=== PATIENT | male | born 1935 ===

== ENCOUNTER 2020-10-08 20:31 | Emergency (ER) | payer MEDICARE, OTHER ==
[2020-10-08] MEDS ORDERED: GLUCAGON,HUMAN RECOMB 1 MG INJ SUBCUT ONE (21:44)
--- NOTE | 2020-10-08 21:44 | ER Document Report ---
ED Medical Screen (RME) - General Chief Complaint: Swallowed Foreign Body Stated Complaint: PIECE OF STEAK STUCK IN THROAT Time Seen by Provider: 10/08/20 21:34 Primary Care Provider: SUSSY KOLB MD [Primary Care Provider] - Follow up as needed - [facility] Notes: 10/08/20 21:44 [id number] is [id number] diabetic presents to the emergency room today for evaluation of what feels like a foreign body stuck in his throat. Patient states last night around 9:30 at night he ate a small piece of steak, he states he got stuck in his throat, he tried to cough and spit up but was unable to. Since yesterday he states that he if he tries to drink anything or eat anything, he has to spit it up because there is something blocking it going down into his stomach. Patient denies having an issue with difficulty in swallowing food in the past, states if he ever felt like if something was stuck he was able to cough it up for work it through. Patient denies ever having an endoscopy. Denies any chest pain, shortness of breath, fevers chills, nausea, vomiting, diarrhea. Denies any recent Covid exposure. I have greeted and performed a rapid initial assessment of this patient. A comprehensive ED assessment and evaluation of the patient, analysis of test results and completion of the medical decision making process will be conducted by additional ED providers. PHYSICAL EXAMINATION: GENERAL: Well-appearing, well-nourished and in no acute distress. HEAD: Atraumatic, normocephalic. NECK: Normal range of motion. No thyroid masses CV: s1, s2 regular LUNGS: No respiratory distress neuro: speech clear Physical Exam - Vital signs Vitals: Temp Pulse Resp BP Pulse Ox 99.5 F 100 16 176/83 H 97 10/08/20 20:48 10/08/20 20:48 10/08/20 20:48 10/08/20 20:48 10/08/20 20:48 Course - Vital Signs Vital signs: Temp Pulse Resp BP Pulse Ox 99.5 F 100 16 176/83 H 97 10/08/20 20:48 10/08/20 20:48 10/08/20 20:48 10/08/20 20:48 10/08/20 20:48 Doctor's Discharge - Discharge Referrals: SUSSY KOLB MD [Primary Care Provider] - Follow up as needed
--- NOTE | 2020-10-08 22:29 | RADIOLOGY REPORT (SQ) ---
EXAM DESCRIPTION: CHEST 2 VIEWS CLINICAL HISTORY: 84 years Male, feels like steak is stuck in throat COMPARISON: None. FINDINGS: Lungs: Lungs are clear. No focal consolidation. No pneumothorax or pleural effusion. Mediastinum: Cardiac and mediastinal silhouette are within normal limits. There is postoperative change of prosthetic valve placement. No radiopaque foreign body is identified in the mediastinum. The esophagus may be distended. It appears to be distended with air to the level of the retrocardiac region. Bones: There is endplate spondylosis in the thoracic spine. Upper abdomen is unremarkable. IMPRESSION: Apparent distention of the esophagus to the level of the retrocardiac region. This would support the diagnosis of food impaction in the esophagus. No radiopaque foreign body is visualized. No pneumonia or edema.
--- NOTE | 2020-10-08 22:31 | RADIOLOGY REPORT (SQ) ---
Soft tissue neck radiographs: 10/08/2020 9:29 PM [facility] HELPER COMPARISON: None available HISTORY: 84-year old patient with throat pain. TECHNIQUE: AP and lateral radiographs of the neck were obtained. FINDINGS: The visualized vertebral bodies appear well aligned. No significant prevertebral soft tissue swelling is seen. No gross abnormality is noted. No abnormal radiopaque densities are seen. The visualized apices are unremarkable. There is an overall increased cervical lordosis noted. There is minimal anterolisthesis of C5 over C6 by 3 to 4 mm. Midline sternotomy changes are seen. Atherosclerotic calcifications are seen at the aortic arch. IMPRESSION: No significant prevertebral soft tissue swelling is seen. No gross radiopaque foreign body is seen.
--- NOTE | 2020-10-09 01:27 | ER Document Report ---
ED Foreign Body - General Chief Complaint: Swallowed Foreign Body Stated Complaint: PIECE OF STEAK STUCK IN THROAT Time Seen by Provider: 10/08/20 21:34 Primary Care Provider: SUSSY KOLB MD [Primary Care Provider] - Follow up as needed Mode of Arrival: Ambulatory Information source: Patient Notes: ED Medical Screen ([facility]) - General Chief Complaint: Swallowed Foreign Body Stated Complaint: PIECE OF STEAK STUCK IN THROAT Time Seen by Provider: 10/08/20 21:34 Primary Care Provider: SUSYS KOLB MD [Primary Care Provider] - Follow up as needed - [facility] Notes: 10/08/20 21:44 [id number] is [id number] diabetic presents to the emergency room today for evaluation of what feels like a foreign body stuck in his throat. Patient states last night around 9:30 at night he ate a small piece of steak, he states he got stuck in his throat, he tried to cough and spit up but was unable to. Since yesterday he states that he if he tries to drink anything or eat anything, he has to spit it up because there is something blocking it going down into his stomach. Patient denies having an issue with difficulty in swallowing food in the past, states if he ever felt like if something was stuck he was able to cough it up for work it through. Patient denies ever having an endoscopy. Denies any chest pain, shortness of breath, fevers chills, nausea, vomiting, diarrhea. Denies any recent Covid exposure. MY NOTES 84-year-old male arrives with chief complaint of 24 hours of epigastric pain after he ate a steak 24 hours prior. He was complaining of having problems of vomiting after drinking or anything today. X-rays here today were positive for food bolus in the cardiac sphincter area. A shot of glucagon was given in his left shoulder and he attempted to drink some water and it was able to pass and he feels much improved. He advises he has to get out to his who is in the parking lot. A discharge paper was written for him after q uick discussion with his problem appears to have resolved. He is very happy and advised him to return to ER if symptoms persist or worsen and for him to follow- up with Dr. Brown mask design engineer this week if possible. - Related Data Allergies/Adverse Reactions: No Known Allergies Allergy (Unverified 10/08/20 22:02) Past Medical History - General Information source: Patient - Social History Smoking Status: Never Smoker Cigarette use (# per day): No Chew tobacco use (# tins/day): No Smoking Education Provided: No Frequency of alcohol use: None Lives with: Family Family History: Reviewed & Not Pertinent Patient has suicidal ideation: No Patient has homicidal ideation: No Review of Systems - Review of Systems Constitutional: No symptoms reported EENT: No symptoms reported Cardiovascular: No symptoms reported Respiratory: No symptoms reported Gastrointestinal: See HPI, Abdomen distended, Abdominal pain Genitourinary: No symptoms reported Male Genitourinary: No symptoms reported Musculoskeletal: No symptoms reported Skin: No symptoms reported Hematologic/Lymphatic: No symptoms reported Neurological/Psychological: No symptoms reported Physical Exam - Vital signs Vitals: Temp Pulse Resp BP Pulse Ox 99.5 F 100 16 176/83 H 97 10/08/20 20:48 10/08/20 20:48 10/08/20 20:48 10/08/20 20:48 10/08/20 20:48 Interpretation: Hypertensive, Febrile - General General appearance: Appears well, Alert - HEENT Head: Normocephalic, Atraumatic Eyes: Normal Pupils: PERRL - Respiratory Respiratory status: No respiratory distress Chest status: Nontender Breath sounds: Normal Chest palpation: Normal - Cardiovascular Rhythm: Regular Heart sounds: Normal auscultation Murmur: No - Abdominal Inspection: Normal Distension: No distension Bowel sounds: Normal Tenderness: Nontender - Upon my exam around 0 130 patient was doing quite well ready to leave this ER. He was in triage area. Organomegaly: No organomegaly - Rectal Prostate: Other - Deferred - Genitourinary Scrotum: Other - Deferred - Back Back: Normal, Nontender - Extremities General upper extremity: Normal inspection, Nontender, Normal color, Normal ROM, Normal temperature General lower extremity: Normal inspection, Nontender, Normal color, Normal ROM, Normal temperature, Normal weight bearing. No: Oksana's sign - Neurological Neuro grossly intact: Yes Cognition: Normal Orientation: AAOx4 Rafi Coma Scale Eye Opening: Spontaneous Liberty Coma Scale Verbal: Oriented Liberty Coma Scale Motor: Obeys Commands Liberty Coma Scale Total: 15 Speech: Normal Motor strength normal: LUE, RUE, LLE, RLE Sensory: Normal - Psychological Associated symptoms: Normal affect, Normal mood - Skin Skin Temperature: Warm Skin Moisture: Dry Skin Color: Normal Course - Vital Signs Vital signs: Temp Pulse Resp BP Pulse Ox 99.5 F 100 16 176/83 H 97 10/08/20 20:48 10/08/20 20:48 10/08/20 20:48 10/08/20 20:48 10/08/20 20:48 - Laboratory Laboratory results interpreted by me: 10/08/20 21:46 POC Glucose 122 H - Diagnostic Test Radiology reviewed: Reports reviewed Critical Care Note - Critical Care Note Comments: Much improved around triage waiting room patient reports she has to get to his who was out at the parking lot and is feeling much improved. Discharge - Discharge Clinical Impression: Much improved after Decadron shot Esophageal foreign body Qualifiers: Encounter type: initial encounter Qualified Code(s): T18.108A - Unspecified foreign body in esophagus causing other injury, initial encounter Condition: Stable Disposition: HOME, SELF-CARE Additional Instructions: Follow-up with Dr. Hall mask design engineer tomorrow if symptoms persist take medicines as directed encourage fluids Prescriptions: Misoprostol [Cytotec 0.2 mg Tablet] 0.2 mg PO BID #10 tablet Referrals: SUSSY KOLB MD [Primary Care Provider] - Follow up as needed
[2020-10-09 01:50] VITALS: BP 168/72
--- OUTSIDE RECORDS SUMMARY | 2020-10-10 17:47 | XMS REPORT ---
:1935 Author Organization [facility] Address [address] [address] Care Team Providers Name Role Phone Unavailable Unavailable Unavailable Allergies, Adverse Reactions, Alerts This patient has no known allergies or adverse reactions. Medications Ordered Filled Start Stop Current Ordering Indication Dosage Frequency Signature Comments Components Medication Medication Date Date Medication? Clinician (SIG) Name Name lisinopril No 1 Q1D lisinopril 40 mg 40 mg tablet Take tablet 1 tablet Take 1 every day tablet by oral every day route for by oral 90 days. route for 90 days. Edarbi 40 No 1 Q1D Edarbi 40 mg tablet mg tablet Take 1 Take 1 tablet tablet every day every day by oral by oral route for route for 90 days. 90 days. pyridoxine No 1 Q1D pyridoxine (vitamin (vitamin B6) 100 mg B6) 100 mg tablet Take tablet 1 tablet Take 1 every day tablet by oral every day route for by oral 90 days. route for 90 days. atorvastati No 1 Q1D atorvastat n 10 mg in 10 mg tablet Take tablet 1 tablet Take 1 every day tablet by oral every day route for by oral 90 days. route for 90 days. allopurinol No allopurino 100 mg l 100 mg tablet TAKE tablet 1 TABLET BY TAKE 1 ORAL ROUTE TABLET BY DAILY FOR ORAL ROUTE GOUT DAILY FOR GOUT amlodipine No amlodipine 5 mg tablet 5 mg TAKE 1 tablet TABLET BY TAKE 1 ORAL ROUTE TABLET BY DAILY ORAL ROUTE DAILY aspirin 81 No 1 Q1D aspirin 81 mg mg tablet,vincent tablet,del yed release ayed Take 1 release tablet Take 1 every day tablet by oral every day route. by oral route. atorvastati No atorvastat n 20 mg in 20 mg tablet Take tablet 1 tablet by Take 1 oral route tablet by daily oral route daily glimepiride No glimepirid 1 mg tablet e 1 mg TAKE 1 tablet TABLET BY TAKE 1 ORAL ROUTE TABLET BY DAILY ORAL ROUTE DAILY indomethaci No indomethac n 50 mg in 50 mg capsule capsule TAKE 1 TAKE 1 TABLET BY TABLET BY ORAL ROUTE ORAL ROUTE PRN Q8HRS PRN Q8HRS lisinopril No lisinopril 20 mg 20 mg tablet TAKE tablet 1 TABLET BY TAKE 1 ORAL ROUTE TABLET BY DAILY ORAL ROUTE DAILY metformin No metformin ER 500 mg ER 500 mg tablet,exte tablet,ext nded ended release 24 release 24 hr TAKE 1 hr TAKE 1 TABLET BY TABLET BY ORAL ROUTE ORAL ROUTE DAILY DAILY metoprolol No metoprolol succinate succinate ER 50 mg ER 50 mg tablet,exte tablet,ext nded ended release 24 release 24 hr TAKE 1 hr TAKE 1 1/2 TABLET 1/2 TABLET BY ORAL BY ORAL ROUTE DAILY ROUTE DAILY tadalafil No tadalafil 20 mg 20 mg tablet take tablet 1 tablet by take 1 oral route tablet by daily oral route daily lisinopril No 2 Q1D lisinopril 30 mg 30 mg tablet Take tablet 2 tablets Take 2 every day tablets by oral every day route for by oral 90 days. route for 90 days. amlodipine No 1 Q1D amlodipine 10 mg 10 mg tablet Take tablet 1 tablet Take 1 every day tablet by oral every day route for by oral 90 days. route for 90 days. 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 00:00: arm Arm 00 Degenerativ Degenerativ Problem Active e joint e Joint 1-15 disease Disease 00:00: involving Involving 00 multiple Multiple joints Joints Hyperlipide Hyperlipide Problem Active neymar neymar 06-27 00:00: 00 Chronic Chronic Problem Active gouty Gouty 06-27 arthritis Arthritis 00:00: 00 Coronary Coronary Problem Active arterioscle Arterioscle 06-27 rosis rosis 00:00: 00 Bifascicula 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 06-27 00:00: 00 Primary Primary Problem Active erectile Erectile 06-27 dysfunction Dysfunction 00:00: 00 Unsteady Unsteady Problem Active when When 06-27 standing Standing 00:00: 00 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 00:00: 00 History of History of Problem Active aortic Aortic 03-02 valve Valve 00:00: replacement Replacement 00 Type 2 Type 2 Problem Active diabetes Diabetes mellitus Mellitus Essential Essential Problem Active hypertensio Hypertensio n n Procedures Procedure Date / Time Performed Performing Clinician Charly e bone density 2019-12-13 00:00:00 XR, knee 2019-10-11 00:00:00 sudomotor testing of autonomic 2019-07-26 00:00:00 nervous system function (PROC) ELECTROCARDIOGRAM COMPLETE 2019-07-26 00:00:00 PHYSICAL PERFORMANCE TEST 2019-06-27 00:00:00 Heart Valve Replacement 2011-03-02 00:00:00 Cataract Surgery Tonsillectomy Appendectomy Results Test Description Test Time Test Comments Text Results Atomic Results Result Comments CBC W Auto Differential panel - Blood 2020-05-16 14:43:00 Test Item Value Reference Range Comments WBC (test code = WBC) 7.7 K/uL 4.1-10.9 lym% (test code = lym%) 26.3 % 10.0-58.5 lym# (test code = lym#) 2.0 % 0.6-4.1 mxd# (test code = mxd#) 0.8 % 0.0-1.8 mxd% (test code = mxd%) 10.5 % 0.1-24.0 gran (test code = gran) 4.9 % 2.0-7.8 gran% (test code = gran%) 63.2 % 37.0-92.0 RBC (test code = RBC) 4.57 M/uL 4.20-6.30 HGB (test code = HGB) 13.4 g/dL 14.1-18.1 HCT (test code = HCT) 41.0 % 34.5-53.7 MCV (test code = MCV) 89.7 fL 80.0-97.0 MCH (test code = MCH) 29.3 pg 26.0-32.0 MCHC (test code = MCHC) 32.7 g/dL 31.0-36.0 RDW (test code = RDW) 14.6 % 11.5-14.5 plt (test code = plt) 175 K/uL 140-440 MPV (test code = MPV) 9.1 fL 0.0-99.8 lipid panel, [id number] 14:38:13 Test Item Value Reference Range Comments TC (<200 mg/dL) (test code = TC (<200 mg/dL)) 107 mg/dL <2 00 mg/dL HDL (40-60 mg/dL) (test code = HDL (40-60 mg/dL)) 35 mg/dL 40-60 mg/dL trig (<150 mg/dL) (test code = trig (<150 mg/dL)) 89 mg/dL <150 mg/dL LDL (<100 mg/dL) (test code = LDL (<100 mg/dL)) 54 mg/dL <100 non-HDL (<130 mg/dL) (test code = non-HDL (<130 72 mg/dL <130 mg/dL mg/dL)) TC/HDL ratio (4.5 or less) (test code = TC/HDL 1.5 mg/dL 4 .5 or less ratio (4.5 or less)) 10yr CHD risk (test code = 10yr CHD risk) % test code: 801198 (test code = test code: 978425) Microalbumin/Creatinine [Mass Ratio] in [id number] 15:50:00 Test Item Value Reference Range Comments Microalbumin (test code = Microalbumin) 80 Creatinine (test code = Creatinine) 300 Ratio (test code = Ratio) 26 CBC W Auto Differential panel - [id number] 15:49:00 Test Item Value Reference Range Comments WBC (test code = WBC) 8.0 K/uL 4.1-10.9 lym% (test code = lym%) 26.6 % 10.0-58.5 lym# (test code = lym#) 2.1 % 0.6-4.1 mxd# (test code = mxd#) 1.3 % 0.0-1.8 mxd% (test code = mxd%) 15.9 % 0.1-24.0 gran (test code = gran) 4.6 % 2.0-7.8 gran% (test code = gran%) 57.5 % 37.0-92.0 RBC (test code = RBC) 4.55 M/uL 4.20-6.30 HGB (test code = HGB) 13.4 g/dL 14.1-18.1 HCT (test code = HCT) 41.6 % 34.5-53.7 MCV (test code = MCV) 91.5 fL 80.0-97.0 MCH (test code = MCH) 29.5 pg 26.0-32.0 MCHC (test code = MCHC) 32.2 g/dL 31.0-36.0 RDW (test code = RDW) 14.7 % 11.5-14.5 plt (test code = plt) 185 K/uL 140-440 MPV (test code = MPV) 8.2 fL 0.0-99.8 fecal occult blood, [id number] 16:22:00 Test Item Value Reference Range Comments Occult Blood (test code = Occult Blood) negative lipid panel, [id number] 12:40:00 Test Item Value Reference Range Comments TC (<200 mg/dL) (test code = TC (<200 mg/dL)) 111 mg/dL <2 00 mg/dL HDL (40-60 mg/dL) (test code = HDL (40-60 mg/dL)) 38 mg/dL 40-60 mg/dL trig (<150 mg/dL) (test code = trig (<150 mg/dL)) 99 mg/dL <150 mg/dL LDL (<100 mg/dL) (test code = LDL (<100 mg/dL)) 53 mg/dL <100 non-HDL (<130 mg/dL) (test code = non-HDL (<130 73 mg/dL <130 mg/dL mg/dL)) TC/HDL ratio (4.5 or less) (test code = TC/HDL 2.9 mg/dL 4 .5 or less ratio (4.5 or less)) 10yr CHD risk (test code = 10yr CHD risk) % test code: 349332 (test code = test code: 309449) Hemoglobin A1c/Hemoglobin.total in [id number] 12:38:00 Test Item Value Reference Range Comments Hemoglobin A1c/Hemoglobin.total in Blood (test code = 6.5 % 4.2% -6.5 4548-4) Microalbumin/Creatinine [Mass Ratio] in [id number] 13:03:00 Test Item Value Reference Range Comments Microalbumin (test code = Microalbumin) 80 Creatinine (test code = Creatinine) 300 Ratio (test code = Ratio) 26 EKG [id number] 13:37:00 Test Item Value Reference Range Comments Rate & Rhythm (test code = Rate & 64 bpm/Sinus rhythm Rhythm) QRS (test code = QRS) 150 ms QRS Duration (test code = QRS Duration) [address] Interval (test code = CT Interval) 196 ms QT Interval (test code = QT Interval) 444 ms Hemoglobin A1c/Hemoglobin.total in [id number] 16:11:00 Test Item Value Reference Range Comments Hemoglobin A1c/Hemoglobin.total in Blood (test code = 5.9 % 4.2% -6.5 4548-4) CBC W Auto Differential panel - [id number] 15:57:00 Test Item Value Reference Range Comments WBC (test code = WBC) 9.4 K/uL 4.1-10.9 lym% (test code = lym%) 32.3 % 10.0-58.5 lym# (test code = lym#) 3.0 % 0.6-4.1 mxd# (test code = mxd#) 1.3 % 0.0-1.8 mxd% (test code = mxd%) 14.3 % 0.1-24.0 gran (test code = gran) 5.0 % 2.0-7.8 gran% (test code = gran%) 53.4 % 37.0-92.0 RBC (test code = RBC) 4.22 M/uL 4.20-6.30 HGB (test code = HGB) 12.7 g/dL 14.1-18.1 HCT (test code = HCT) 39.5 % 34.5-53.7 MCV (test code = MCV) 93.7 fL 80.0-97.0 MCH (test code = MCH) 30.1 pg 26.0-32.0 MCHC (test code = MCHC) 32.2 g/dL 31.0-36.0 RDW (test code = RDW) 15.1 % 11.5-14.5 plt (test code = plt) 277 K/uL 140-440 MPV (test code = MPV) 7.1 fL 0.0-99.8 Assessments Condition Name Status Diagnosis Date Treating Clinici an Essential hypertension 2020-08-15 13:58:40 Hyperlipidemia 2020-08-15 13:58:42 Coronary arteriosclerosis 2020-08-15 13:58:48 Type 2 diabetes mellitus 2020-08-15 14:03:51 Chronic gouty arthritis 2020-08-15 14:04:40 Type 2 diabetes mellitus 2020-05-16 13:51:05 Degenerative joint disease involving 2020-05-16 13:51:07 multiple joints Hyperlipidemia 2020-05-16 14:38:50 Essential hypertension 2020-03-15 11:08:44 Hyperlipidemia 2020-03-15 11:08:45 Coronary arteriosclerosis 2020-03-15 11:08:47 Type 2 diabetes mellitus 2020-01-16 14:34:41 Essential hypertension 2020-01-16 14:35:07 Primary erectile dysfunction 2020-01-16 16:20:50 Ulnar neuropathy of right arm 2020-01-16 16:22:5 2 Adult health examination 2019-12-13 13:59:47 Immunization 2019-12-13 14:00:29 Screening for malignant neoplasm of 2019-12-13 1 4:01:20 colon Screening for osteoporosis 2019-12-13 14:04:15 Advance directive discussed with 2019-12-13 14:0 4:59 patient Essential hypertension 2019-12-13 14:02:50 Type 2 diabetes mellitus 2019-12-13 14:02:59 Type 2 diabetes mellitus Active 2019-10-11 12:02:32 Essential hypertension 2019-10-11 12:02:33 Osteoarthritis of knee Active 2019-10-11 13:40:40 Essential hypertension Active 2019-09-06 15:21:54 Hyperlipidemia Active 2019-09-06 15:21:56 Type 2 diabetes mellitus Active 2019-09-06 17:04:53 Chronic gouty arthritis Active 2019-09-06 17:05:06 Influenza vaccination Active 2019-09-06 17:09:49 Coronary arteriosclerosis Active 2019-07-26 15:30:15 Type 2 diabetes mellitus Active 2019-07-26 15:31:11 Essential hypertension Active 2019-07-26 15:31:13 History of aortic valve replacement Active 2019-07-26 1 6:57:35 Unsteady when standing Active 2019-07-26 15:30:23 Type 2 diabetes mellitus Active 2019-06-27 16:30:18 Essential hypertension Active 2019-06-27 16:30:29 Unsteady when standing Active 2019-06-27 17:00:54 Encounters Start End Encounter Admission Attending Care Care Encounter Date/Time Date/Time Type Type Clinicians Facility Department ID 2020-08-15 [facility] JENNYFER Joseph: Shalini Ideal [address] [facility] [place] [address] , Ph. 2020-05-16 2020-05-16 [facility] 00:00:00 00:00:00 [facility] MD: [address] [place] [address] , Ph. 2020-03-15 2020-03-15 [facility] 00:00:00 00:00:00 [facility] Shalini [address] [facility] MD: [address] [place] [address] , Ph. 2020-01-16 2020-01-16 [facility] 00:00:00 00:00:00 [facility] [address] MD: [address] [place] [address] , Ph. 2019-12-13 2019-12-13 [facility] 00:00:00 00:00:00 [facility] Shalini [address] [facility] MD: [address] [place] [address] , Ph. 2019-10-11 2019-10-11 [facility] 28_2018 00:00:00 00:00:00 [facility] Shalini [address] [facility] MD: [address] [place] [address] , Ph. 2019-09-06 2019-09-06 [facility] 28_2018 00:00:00 00:00:00 [facility] Shalnii [address]9 [facility] MD: [address] [place] [address] , Ph. 2019-07-26 2019-07-26 [facility] 28_2018 00:00:00 00:00:00 [facility] [address] [facility] MD: [address] [place] [address] , Ph. 2019-06-27 2019-06-27 [facility] 28_2018 00:00:00 00:00:00 Aristides Loya 0730 [facility] MD: [address] [place] [address] , Ph. Immunizations Ordered Immunization Filled Immunization Date Status Commen ts Refusal Reason Name Name Influenza, 2019-09-06 Completed injectable, MDCK, 17:26:00 preservative free, quadrivalent influenza, 2018-08-01 Completed injectable, 00:00:00 quadrivalent Plan of Treatment Planned Activity Planned Date Details Comments Future Appointment 2020-10-15 00:00:00 [facility] [address] [address] Social History Smoking Status Start Date Stop Date Former Smoker Vital Signs Vital Name Observation Time Observation Value Comments BP Diastolic 2020-08-15 00:00:00 65 mm[Hg] Height 2020-08-15 00:00:00 70 [in_i] BMI (Body Mass Index) 2020-08-15 00:00:00 29.4 kg/m2 BP Systolic 2020-08-15 00:00:00 155 mm[Hg] Body Weight 2020-08-15 00:00:00 205 [lb_av] BMI (Body Mass Index) 2020-05-16 00:00:00 29.3 kg/m2 BP Systolic 2020-05-16 00:00:00 131 mm[Hg] Body Weight 2020-05-16 00:00:00 204 [lb_av] BP Diastolic 2020-05-16 00:00:00 63 mm[Hg] Height 2020-05-16 00:00:00 70 [in_i] BP Diastolic 2020-03-15 00:00:00 82 mm[Hg] Height 2020-03-15 00:00:00 70 [in_i] BMI (Body Mass Index) 2020-03-15 00:00:00 28.7 kg/m2 BP Systolic 2020-03-15 00:00:00 144 mm[Hg] Body Weight 2020-03-15 00:00:00 200 [lb_av] BP Diastolic 2020-01-16 00:00:00 61 mm[Hg] Height 2020-01-16 00:00:00 70 [in_i] BMI (Body Mass Index) 2020-01-16 00:00:00 28.8 kg/m2 BP Systolic 2020-01-16 00:00:00 134 mm[Hg] Body Weight 2020-01-16 00:00:00 201 [lb_av] BP Diastolic 2019-12-13 00:00:00 60 mm[Hg] Height 2019-12-13 00:00:00 70 [in_i] BMI (Body Mass Index) 2019-12-13 00:00:00 28.7 kg/m2 BP Systolic 2019-12-13 00:00:00 120 mm[Hg] Body Weight 2019-12-13 00:00:00 200 [lb_av] BP Diastolic 2019-10-11 00:00:00 80 mm[Hg] Height 2019-10-11 00:00:00 70 [in_i] BMI (Body Mass Index) 2019-10-11 00:00:00 28.7 kg/m2 BP Systolic 2019-10-11 00:00:00 150 mm[Hg] Body Weight 2019-10-11 00:00:00 200 [lb_av] BP Diastolic 2019-09-06 00:00:00 73 mm[Hg] Height 2019-09-06 00:00:00 70 [in_i] BMI (Body Mass Index) 2019-09-06 00:00:00 28.8 kg/m2 BP Systolic 2019-09-06 00:00:00 179 mm[Hg] Body Weight 2019-09-06 00:00:00 200.6 [lb_av] BP Diastolic 2019-07-26 00:00:00 71 mm[Hg] Height 2019-07-26 00:00:00 70 [in_i] BMI (Body Mass Index) 2019-07-26 00:00:00 28.2 kg/m2 BP Systolic 2019-07-26 00:00:00 172 mm[Hg] Body Weight 2019-07-26 00:00:00 196.2 [lb_av] BP Diastolic 2019-06-27 00:00:00 79 mm[Hg] Height 2019-06-27 00:00:00 70 [in_i] BMI (Body Mass Index) 2019-06-27 00:00:00 27.8 kg/m2 BP Systolic 2019-06-27 00:00:00 165 mm[Hg] Body Weight 2019-06-27 00:00:00 193.8 [lb_av] Hospital Discharge Instructions 1. Essential hypertension lisinopril 30 mg tablet amlodipine 10 mg tablet high blood pressure: care instructions low sodium diet (2,000 milligram): care instructions dash diet: careinstructions 2. Hyperlipidemia atorvastatin 10 mg tablet high cholesterol: care instructions high- fiber diet: care instructions statins: care instructions 3. Coronary arteriosclerosis metoprolol succinate ER 50 mg tablet,extended release 24 hr 4. Type 2 diabetes mellitus metformin ER 500 mg tablet,extended release 24 hr glimepiride 1 mg tablet 5. Chronic gouty arthritis allopurinol 100 mg tablet gout: care instructions Discussion Note Patient verbalized understanding and agreement with recommended care plan. All questions and concerns were addressed and answered adequately. Follow up visit will address dm, htn, hld1. Type 2 diabetes mellitus type 2 diabetes: care instructions CBC w/ auto diff CMP, serum or plasma HbA1c (hemoglobin A1c), blood diabetic ophthalmology referral 2. Degenerative joint disease involving multiple joints osteoarthritis: care instructions 3. Hyperlipidemia lipi d panel, blood atorvastatin 10 mg tablet Discussion Note Patient verbalized understanding and agreement with recommended care plan. All questions and concerns were addressed and answered adequately. Follow up visit will address htn, cad, hld1. Essential hypertension high blood pressure: care instructions learning about high blood pressure low sodium diet (2,000 milligram): care instructions 2. Hyperlipidemia high cholesterol: care instructions high-fiber diet: care instructions statins: care instructions 3. Coronary arteriosclerosis coronary artery disease: care instructions A healthy heart: care instructions Discussion Note Patient verbalized understanding and agreement with recommended care plan. All questions and concerns were addressed and answered adequately. Follow up visit will address Arthritis,DM,1. Type 2 diabetes mellitus learning about type 2 diabetes type 2 diabetes: care instructions microalbumin/creatinine, mass ratio, urine 2. Essential hypertension CBC w/ auto diff CMP, serum or plasma lisinopril 30 mg tablet dash diet: care instructions low sodium diet (2,000 milligram): care instructions high blood pressure: care instructions 3. Primary erectile dysfunction erectile dysfunction: care instructions 4. Ulnar neuropathy of right arm pyridoxine (vitamin B6) 100 mg tablet ulnar neuropathy (handlebar palsy): exercises Discussion Note Patient verbalized understanding and agreement with recommended care plan. All questions and concerns were addressed and answered adequately. Follow up visit will address htn, cad, hld1. Adult health examination visual acuity well visit, over 65: care instructions nutrition for older adults: care instructions walking for exercise: care instructions preventing falls: care instructions preventing outdoor falls: care instructions 2. Immunization influenza (flu) vaccine (inactivated or recombinant): what you need to know 3. Screening for malignant neoplasm of colon colon cancer screening: care instructions high-fiber diet: care instructions fecal occult blood, stool 4. Screening for osteoporosis preventing osteoporosis: care instructions bone density 5. Advance directive discussed with patient advance directives: care instructions advance care planning: care instructions learning about living [place] learning about durable power of senior trial attorney for health care 6. Essential hypertension lipid panel, blood Edarbi 40 mg tablet 7. Type 2 diabetes mellitus HbA1c (hemoglobin A1c), blood Discussion Note Patient verbalized understanding and agreement with recommended care plan. All questions and concerns were addressed and answered adequately. Follow up visit will address htn, dm1. Type 2 diabetes mellitus type 2 diabetes: care instructions microalbumin/creatinine, massratio, urine 2. Essential hypertension lipid panel, blood low sodium diet (2,000 milligram):care instructions high blood pressure: care instructions dash diet: care instructions 3. Osteoarthritis of knee knee arthritis: care instructions XR, knee Discussion Note Patient verbalized understanding and agreement with recommended care plan. All questions and concerns were addressed and answered adequately. Follow up visit will address awv1. Essential hypertension metoprolol succinate ER 50 mg tablet,extended release 24 hr lisinopril 40 mg tablet amlodipine 10 mg tablet 2. Hyperlipidemia high cholesterol: care instructions lipid panel, blood atorvastatin 20 mg tablet 3. Type 2 diabetes mellitus metformin ER 500 mg tablet,extended release 24 hr glimepiride 1 mg tablet 4. Chronic gouty arthritis allopu rinol 100 mg tablet 5. Influenza vaccination Flucelvax Quad [id number] (PF) 60 mcg (15 mcg x 4)/0.5 mL IM syringe Discussion Note Patient verbalized understanding and agreement with recommended careplan. All questions and concerns were addressed and answered adequately. Follow up visit will address htn, dm1. Type 2 diabetes mellitus learning about type 2 diabetes type 2 diabetes: care instructions 2. Essential hypertension dash diet: care instructions low sodium diet (2,000 milligram): care instructions high blood pressure: care instructions 3. Unsteady when standing physical therapy referral physical performance testing (PROC) Discussion Note Patient verbalized understanding and agreement with recommended care plan. All questions and concerns were addressed and answered adequately. Follow up visit will address htn, cad, gait
== END 2020-10-09 01:49 | disposition home or self-care (01) ==
LOC: ER 20:31
DX: T18.108A Unspecified foreign body in esophagus causing other injury, initial encounter (principal); X58.XXXA Exposure to other specified factors, initial encounter
CPT/HCPCS: 71046; 99284; 96372; 82962; 70360; J1610